=== PATIENT | female | born 1990 | race Asian ===

== ENCOUNTER 2018-04-04 15:25 | Emergency (ER) | payer OTHER ==
[2018-04-04 15:31] VITALS: BP 106/71; PULSE 90; TEMP 98.3; BMI 28.3
--- NOTE | 2018-04-04 15:33 | PDOC ---
History of Present Illness - General History Source: Patient Exam Limitations: No Limitations - History of Present Illness Initial Comments: 04/04/18 15:48 The patient is a 28 year old female, with no significant past medical history, who presents to the emergency department with, a headache and lethargy. As per patient, she was recently diagnosed with Influenza B last week at urgent care. She notes since then she has been feeling increasingly tired and a constant headache which is minimally relieved with Excedrin. She describes her headache as pressure/tension-like and diffuse across her head and neck. She endorses an episode of near syncope where she began to feel dizzy and diaphoretic prior to her arrival, prompting her evaluation. She denies any change in strength/sensation, deficits in speech, or vision changes. She denies recent fevers or chills. She denies nausea, vomit, diarrhea or constipation. She denies recent dysuria, frequency, urgency or hematuria. She denies recent chest pain or shortness of breath. Allergies: NKA Past surgical history: None reported. Social history: Nonsmoker. Denies EtOH use and recreational drug use. <Anmol Conrad - Last Filed: 04/04/18 15:48> <Apple Saini - Last Filed: 04/04/18 17:42> - General Chief Complaint: Migraine Headache Stated Complaint: HEAD PRESSURE Time Seen by Provider: 04/04/18 15:27 Past History <Anmol Conrad - Last Filed: 04/04/18 15:48> - Past Medical History COPD: No Other medical history: MIGRAINE, FLU B - Suicide/Smoking/Psychosocial Hx Smoking Status: No Smoking History: Never smoked Have you smoked in the past 12 months: No Number of Cigarettes Smoked Daily: 0 Information on smoking cessation initiated: No Hx Alcohol Use: No Drug/Substance Use Hx: No Substance Use Type: None <Apple Saini - Last Filed: 04/04/18 17:42> - Past Medical History Allergies/Adverse Reactions: Allergies Allergy/AdvReac Type Severity Reaction Status Date / Time No Known Allergies Allergy Verified 04/04/18 15:26 Home Medications: Ambulatory Orders NK [No Known Home Medication] 04/04/18 Review of Systems - Review of Systems Able to Perform ROS?: Yes Comments:: 04/04/18 15:48 +GENERAL/CONSTITUTIONAL: Lethargy. No fever or chills. HEAD, EYES, EARS, NOSE AND THROAT: No change in vision. No ear pain or discharge. No sore throat. CARDIOVASCULAR: No chest pain or shortness of breath. RESPIRATORY: No cough, wheezing, or hemoptysis. GASTROINTESTINAL: No nausea, vomiting, diarrhea or constipation. GENITOURINARY: No dysuria, frequency, or change in urination. MUSCULOSKELETAL: No joint or muscle swelling or pain. No neck or back pain. SKIN: No rash +NEUROLOGIC: Headache. No vertigo, loss of consciousness, or change in strength/ sensation. ENDOCRINE: No increased thirst. No abnormal weight change. HEMATOLOGIC/LYMPHATIC: No anemia, easy bleeding, or history of blood clots. ALLERGIC/IMMUNOLOGIC: No hives or skin allergy. All Other Systems: Reviewed and Negative <Anmol Conrad - Last Filed: 04/04/18 15:48> *Physical Exam - Vital Signs Last Vital Signs Temp Pulse Resp BP Pulse Ox 98.3 F 90 20 106/71 99 04/04/18 15:25 04/04/18 15:25 04/04/18 15:25 04/04/18 15:25 04/04/18 15:25 <Anmol Cornad - Last Filed: 04/04/18 15:48> - Vital Signs Last Vital Signs Temp Pulse Resp BP Pulse Ox 98.3 F 90 20 106/71 99 04/04/18 15:25 04/04/18 15:25 04/04/18 15:25 04/04/18 15:25 04/04/18 15:25 - Physical Exam Comments: GENERAL: Awake, alert, and fully oriented, in no acute distress HEAD: No signs of trauma EYES: PERRLA, EOMI, sclera anicteric, conjunctiva clear ENT: Auricles normal inspection, hearing grossly normal, nares patent, oropharynx clear without exudates. Moist mucosa NECK: Normal ROM, supple, no lymphadenopathy, JVD, or masses LUNGS: Breath sounds equal, clear to auscultation bilaterally. No wheezes, and no crackles HEART: Regular rate and rhythm, normal S1 and S2, no murmurs, rubs or gallops ABDOMEN: Soft, nontender, normoactive bowel sounds. No guarding, no rebound. No masses EXTREMITIES: Normal range of motion, no edema. No clubbing or cyanosis. No cords, erythema, or tenderness NEUROLOGICAL: Cranial nerves II through XII grossly intact. Normal speech, normal gait SKIN: Warm, Dry, normal turgor, no rashes or lesions noted. <Apple Saini - Last Filed: 04/04/18 17:42> Moderate Sedation - Procedure Monitoring Vital Signs: Procedure Monitoring Vital Signs Temperature 98.3 F 04/04/18 15:25 Pulse Rate 90 04/04/18 15:25 Respiratory Rate 20 04/04/18 15:25 Blood Pressure 106/71 04/04/18 15:25 O2 Sat by Pulse Oximetry (%) 99 04/04/18 15:25 <Anmol Conrad - Last Filed: 04/04/18 15:48> - Procedure Monitoring Vital Signs: Procedure Monitoring Vital Signs Temperature 98.3 F 04/04/18 15:25 Pulse Rate 90 04/04/18 15:25 Respiratory Rate 20 04/04/18 15:25 Blood Pressure 106/71 04/04/18 15:25 O2 Sat by Pulse Oximetry (%) 99 04/04/18 15:25 <Apple Saini - Last Filed: 04/04/18 17:42> Medical Decision Making - Medical Decision Making 04/04/18 16:57 Pt stating she still feels the symptoms. Will send to CT. 04/04/18 17:[address], currently asymptomatic. If wnl, will DC home. <Apple Saini - Last Filed: 04/04/18 17:42> *DC/Admit/Observation/Transfer - Attestations Scribe Attestion: 04/04/18 15:48 Documentation prepared by Anmol Conrad, acting as spanish medical interpreter for Apple Saini MD. <Anmol Conrad - Last Filed: 04/04/18 15:48> - Discharge Dispostion Decision to Admit order: No <Apple Saini - Last Filed: 04/04/18 17:42> Diagnosis at time of Disposition: Headache Qualifiers: Headache type: unspecified Headache chronicity pattern: acute headache Intractability: not intractable Qualified Code(s): R51 - Headache - Discharge Dispostion Disposition: HOME Condition at time of disposition: Improved
[2018-04-04] MEDS ORDERED: KETOROLAC TROMETHAMINE 30 MG/1 ML VIAL IVPUSH ONE (15:42)
[2018-04-04] MEDS ORDERED: METOCLOPRAMIDE HCL INJECTION 10 MG/2 ML VIAL IVPB ONE (15:42)
[2018-04-04] MEDS ORDERED: SODIUM CHLORIDE 1,000 ML IV STA (15:42)
[2018-04-04] MEDS ORDERED: DEXAMETHASONE SOD PHOSPHATE 10 MG/1 ML VIAL IVPUSH ONE (15:43)
[2018-04-04] MEDS ORDERED: KETOROLAC TROMETHAMINE 30 MG/1 ML VIAL ONE (16:04)
[2018-04-04] MEDS ORDERED: DEXAMETHASONE SOD PHOSPHATE 10 MG/1 ML VIAL ONE (16:05)
[2018-04-04] MEDS ORDERED: METOCLOPRAMIDE HCL INJECTION 10 MG/2 ML VIAL ONE (16:05)
[2018-04-04 16:38] LABS: PH,URINE 7.5 (4.5-8); URINE APPEARANCE Clear; URINE BILIRUBIN Negative (NEGATIVE); URINE COLOR Yellow; URINE GLUCOSE (UA) Negative (NEGATIVE); URINE KETONE Negative (NEGATIVE); URINE LEUK ESTERASE Negative (NEGATIVE); URINE NITRITE Negative (NEGATIVE); URINE PROTEIN Negative (NEGATIVE); URINE UROBILINOGEN 0.2 (0.2-1.0)
[2018-04-04 16:44] LABS: HCG,QUALITATIVE URINE Negative
== END 2018-04-04 18:36 | disposition home or self-care (01) ==
LOC: FER 15:25
PROC: 3E033GC Introduction of Other Therapeutic Substance into Peripheral Vein, Percutaneous Approach (ICD-10-PCS; principal; 2018-04-04)
PROC: 3E0333Z Introduction of Anti-inflammatory into Peripheral Vein, Percutaneous Approach (ICD-10-PCS; 2018-04-04)
PROC: 3E0337Z Introduction of Electrolytic and Water Balance Substance into Peripheral Vein, Percutaneous Approach (ICD-10-PCS; 2018-04-04)
DX: R51 Headache (principal)
CPT/HCPCS: 70450-TC; 81003; 84703; 99282-25; J1100; J7030